=== PATIENT | female | born 1990 | race Caucasian/White ===

== ENCOUNTER → 2019-11-28 | Outpatient (CLI) | payer BC, MEDICAID ==
[~2019-11-28] MED LIST: CLEOCIN HCL300 MG PO; MOTRIN 600600 MG/TAB PO; PERCOCET 325 MG1 TA2 PO; PRENATAL1 TA1; STOOL SOFTENER
== END ==
LOC: ZCOL.LAB
DX: Z20.828 Contact with and (suspected) exposure to other viral communicable diseases (principal)

== ENCOUNTER 2019-12-05 06:56 | Inpatient (IN) | payer BC, MEDICAID ==
[2019-12-05] VITALS (24 sets, daily range): BP systolic 112–146; BP diastolic 58–96; PULSE 54–91; TEMP 97.6–98.5
[~2019-12-05] VITALS: Ht 167.6 cm; Wt 95.0 kg
--- NOTE | 2019-12-05 07:10 | NUR ---
Patient ambulatory to LR6 with spouse, changed into gown, FHR/TOCO monitors placed. Patient denies any regular contractions/leaking of fluid/vaginal bleeding/decreased movement. Plan of care discussed. 0715: IV started in left hand, blood obtained and to lab, LR infusing. 0716: Dr. Fernandez at bedside and SVE per physician 2-3/70/-2 and AROM at this time with clear fluid noted. Assessment completed/consents gone over and signed/ packet given. Questions answered.
[2019-12-05 08:23] LABS: BASO % 0.3 % (0.0-2.0); EOS # 0.1 (0.0-0.7); EOS % 0.8 % (0-4.0); GRAN # 7.8 (1.4-6.5); GRAN % 72.5 % (42.2-75.2); HEMOGLOBIN 11.3 g/dl (12.5-16.0); LYMPH # 2.3 (1.2-3.4); LYMPH % 20.9 % (20.0-51.0); MEAN CELL VOLUME 79 fl (80.0-100.0); MEAN CORPUSCULAR HEMOGLOBIN 26 pg (27.0-31.0); MEAN CORPUSCULAR HGB CONC 33 g/dl (33.0-37.0); MEAN PLATELET VOLUME 11.8 fl (7.4-10.4); MONO # 0.6 (0.1-0.6); MONO % 5.2 % (1.7-9.3); PLATELET COUNT 302 K/mm3 (130-400)
[2019-12-05 08:26] LABS: HEMATOCRIT 34.8 % (37.0-47.0)
--- NOTE | 2019-12-05 08:30 | NUR ---
Patient more uncomfortable with contractions. Patient up on birthing ball. 0915: Patient requests for epidural and Henry Yusuf notified. Patient off monitor to void. 0920: SVE-5/90/-1 0930: Patient sat up for epidural and Henry Yusuf [employer] at bedside and difficulty tracing FHR due to maternal position. 0936: Single shot given and patient tolerates well. 0940: Patient repositioned and safety precautions discussed. 1000: Patient having more pain on left side. Patiet left lateral and right leg resting in stirrup. Henry Yusuf [employer] updated. 1010: Recurrent variable/early decelerations noted with contractions. 1018: Patient feeling alot of pressure and SVE 9/100/0 and patient right lateral with left leg resting in stirrup. 1025: Patient states she feels like she needs to push. SVE-10/100/+2 Dr. Fernandez unavaliable due to being in surgery. Dr. Hoyos on unit and called for delivery. 1032: Dr. Hoyos at bedside and patient prepped for vaginal delivery. 1035: Pericare done and patient begins to start pushing with contractions. Recurrent variables noted and difficulty tracing FHR due to pushing with contractions, this RN adjusting monitor. 1047: Spontaneous vaginal delivery of viable female- head followed by body. bulb syringed and to patients abdomen. Cord clamped by physician and cut by FOB. Cord blood obtained. 1051: Spontaneous delivery of placenta and pitocin bolus started at 333mU per protocol. Fundal massage done/firm/bleeding WNL. Dr. Hoyos red robins at this time and begins to repair laceration. Pericare done and patient repositioned and ice pack to perineum. Plan of care discussed.
[2019-12-06 02:00] VITALS: BP 113/55; PULSE 61; TEMP 98.7
[2019-12-06 08:30] VITALS: BP 132/77; PULSE 73; TEMP 98.4
[2019-12-06] MEDS ORDERED: MOTRIN 600600 MG/TAB PO (09:00)
--- NOTE | 2019-12-06 09:31 | NUR ---
Initial visit; Parents thanked [employer] for offering congratulations and God's blessings for the of their daughter. [employer] thanked family for choosing [facility].
== END 2019-12-06 13:45 | disposition home or self-care (01) | DRG 807 ==
LOC: OB 06:56 → LDR 06:56 → OB 11:54
PROVIDERS: ADMIT Obstetrics & Gynecology
PROC: 10E0XZZ Delivery of Products of Conception, External Approach (ICD-10-PCS; principal; 2019-12-05)
PROC: 0KQM0ZZ Repair Perineum Muscle, Open Approach (ICD-10-PCS; 2019-12-05)
PROC: 10907ZC Drainage of Amniotic Fluid, Therapeutic from Products of Conception, Via Natural or Artificial Opening (ICD-10-PCS; 2019-12-05)
DX: O70.1 Second degree perineal laceration during delivery (principal); Z37.0 Single live birth; Z3A.39 39 weeks gestation of pregnancy
CPT/HCPCS: J2590; J2795; J7120